=== PATIENT | female | born 1975 | race Two or more races ===

== ENCOUNTER 2019-11-11 | Emergency (ER) | payer SELFPAY ==
[~2019-11-11] VITALS: Ht 167.6 cm; Wt 82.1 kg
[2019-11-11] MEDS ORDERED: methylPREDNISolone SOD SUCC 125 MG/2 ML VL IM ONE (02:15)
[2019-11-11] MEDS ORDERED: KETOROLAC TROMETH 60MG/2ML VIAL IM ONE (02:15)
[2019-11-11 02:26] VITALS: BP 108/25
== END 2019-11-11 03:10 | disposition home or self-care (01) ==
LOC: EDBD → ER 00:10
DX: S89.92XA Unspecified injury of left lower leg, initial encounter (principal); E11.9 Type 2 diabetes mellitus without complications; V49.9XXA Car occupant (driver) (passenger) injured in unspecified traffic accident, initial encounter; Y93.89 Activity, other specified; Y92.89 Other specified places as the place of occurrence of the external cause; Y99.8 Other external cause status
CPT/HCPCS: 73590; 73610; 96372; 99284; J1885; J2930